=== PATIENT | female | born 1995 | race Caucasian/White ===

== ENCOUNTER 2018-07-30 09:25 | Emergency (ER) | payer MEDICAID ==
[~2018-07-30] VITALS: Ht 160 cm; Wt 65.5 kg
[2018-07-30 09:52] LABS: BASOPHILS % (AUTO) 0.6 % (0.0-2.0); EOSINOPHILS % (AUTO) 1.3 % (1.0-6.0); HEMATOCRIT 37.1 % (36-46); HEMOGLOBIN 12.8 g/dL (12.0-16.0); LYMPHOCYTES # (AUTO) 1.4 K/uL (1.0-4.8); LYMPHOCYTES % (AUTO) 18.1 % (22.0-44.0); MEAN CORPUSCULAR HEMOGLOBIN 31.6 pg (26.0-34.0); MEAN CORPUSCULAR HGB CONC 34.6 G/dL (31.0-37.0); MEAN CORPUSCULAR VOLUME 92 fL (80-100); MONOCYTES # (AUTO) 0.8 K/uL (0.1-1.0); MONOCYTES % (AUTO) 9.7 % (2.0-9.0); NEUTROPHILS # (AUTO) 5.6 K/uL (1.8-7.7); NEUTROPHILS % (AUTO) 70.3 % (40.0-70.0); PLATELET COUNT (AUTO) 336 K/uL (150-450); RED BLOOD CELL COUNT(AUTO) 4.06 MIL/uL (4.00-5.20); RED CELL DISTRIBUTION WIDTH 13.1 % (11.5-14.5)
[2018-07-30 09:55] LABS: APPEARANCE,URINE CLOUDY (CLEAR); BILIRUBIN,URINE NEGATIVE (NEGATIVE); GLUCOSE, URINE (UA) NEGATIVE (NEGATIVE); KETONES,URINE NEGATIVE (NEGATIVE); NITRATE,URINE NEGATIVE (NEGATIVE); OCCULT BLOOD,URINE LARGE (NEGATIVE); PROTEIN,URINE TRACE (NEGATIVE); UROBILINOGEN,URINE 0.2 mg/dL (<=1.0)
[2018-07-30 09:58] LABS: LEUKOCYTE ESTERASE ,URINE TRACE (NEGATIVE)
[2018-07-30 09:59] LABS: BACTERIA,URINE None Seen /HPF (None Seen); RBC,URINE >100 /HPF (0-2); SQUAMOUS EPITHELIAL CELL,UR Few /LPF (None Seen); WBC,URINE 0-2 /HPF (0-5)
[2018-07-30 10:00] LABS: ANION GAP 4 mmol/L (8-16); CALCIUM, TOTAL 8.9 mg/dL (8.8-10.5); CARBON DIOXIDE 31 mmol/L (22-29); CHLORIDE 102 mmol/L (98-107); CREATININE 0.79 mg/dL (0.60-1.30); GLOMERULAR FILTR. RATE CALC > 60 mL/min (>60); GLUCOSE,RANDOM 89 mg/dL (70-110); POTASSIUM 4.4 mmol/L (3.5-5.1); SODIUM SERUM 137 mmol/L (136-145); UREA NITROGEN, BLOOD 12 mg/dL (7-18)
[2018-07-30 10:11] LABS: ALANINE AMINOTRANSFERASE 39 U/L (12-78); ALBUMIN 3.8 g/dL (3.4-5.0); ALKALINE PHOSPHATASE 102 U/L (46-116); ASPARTATE AMINOTRANSFERASE 23 U/L (15-37); BILIRUBIN,TOTAL 0.3 mg/dL (0.1-1.0); HCG,QUANTITATIVE < 1 mIU/mL (0-6); LIPASE 197 U/L (73-393)
[2018-07-30] MEDS ORDERED: ONDANSETRON HCL 4 MG/2 ML VIAL IVP ONE (11:00)
[2018-07-30] MEDS ORDERED: MORPHINE SULFATE 4 MG/ML SYRINGE IVP ONE (11:00)
[2018-07-30] MEDS ORDERED: SODIUM CHLORIDE 0.9% 1,000 ML IV ONE (11:00)
[2018-07-30 13:05] VITALS: BP 120/69
== END 2018-07-30 14:01 | disposition home or self-care (01) ==
LOC: EMS 09:28
DX: K42.9 Umbilical hernia without obstruction or gangrene (principal)
CPT/HCPCS: 36415; 74176; 80053; 81001; 83690; 84702; 85025; 96374; 96375; 99285; J2270; J2405; J7030

== ENCOUNTER 2018-08-01 17:42 | Emergency (ER) | payer MEDICAID ==
[~2018-08-01] VITALS: Ht 160 cm; Wt 74.1 kg
[2018-08-01] MEDS ORDERED: ACET-784 PO (18:07)
[2018-08-01] MEDS ORDERED: IBUPROFEN 600 MG TABLET PO ONE (18:15)
[2018-08-01 20:46] LABS: APPEARANCE,URINE CLOUDY (CLEAR); BILIRUBIN,URINE NEGATIVE (NEGATIVE); GLUCOSE, URINE (UA) NEGATIVE (NEGATIVE); KETONES,URINE NEGATIVE (NEGATIVE); LEUKOCYTE ESTERASE ,URINE LARGE (NEGATIVE); NITRATE,URINE NEGATIVE (NEGATIVE); OCCULT BLOOD,URINE MODERATE (NEGATIVE); PROTEIN,URINE NEGATIVE (NEGATIVE); UROBILINOGEN,URINE 0.2 mg/dL (<=1.0)
[2018-08-01 21:01] LABS: RBC,URINE 0-2 /HPF (0-2); WBC,URINE >100 /HPF (0-5)
[2018-08-01 21:02] LABS: BACTERIA,URINE Moderate /HPF (None Seen); SQUAMOUS EPITHELIAL CELL,UR Few /LPF (None Seen)
[2018-08-01 21:10] LABS: INFLUENZA TYPE A NEGATIVE FOR TYPE A (NEGATIVE); INFLUENZA TYPE B NEGATIVE FOR TYPE B (NEGATIVE)
[2018-08-01] MEDS ORDERED: CIPROFLOXACIN HCL 250 MG TABLET PO ONE (22:00)
[2018-08-01 22:17] VITALS: BP 120/82
== END 2018-08-01 22:18 | disposition home or self-care (01) ==
LOC: EMS 17:43
DX: N12 Tubulo-interstitial nephritis, not specified as acute or chronic (principal); Z79.899 Other long term (current) drug therapy
CPT/HCPCS: 87086; 87804; 99284

== ENCOUNTER 2019-06-17 10:17 | Observation (INO) | payer MEDICAID ==
[~2019-06-17] VITALS: Ht 160 cm; Wt 72.7 kg
[~2019-06-17 10:17] MED LIST: ACET-784 PO
[2019-06-17 11:19] VITALS: BP 129/75
[2019-06-17] MEDS ORDERED: PREN-134 PO (14:05)
== END 2019-06-17 14:15 | disposition home or self-care (01) ==
LOC: EMS 10:19 → INTOOBSV 11:07 → 4S 11:07
PROVIDERS: ADMIT Obstetrics & Gynecology; ATTEND Obstetrics & Gynecology
DX: O26.892 Other specified pregnancy related conditions, second trimester (principal); R10.30 Lower abdominal pain, unspecified; Z3A.26 26 weeks gestation of pregnancy
CPT/HCPCS: 36415; 76811; 80307 ×8; 80349; 84702; G0378

== ENCOUNTER 2024-01-03 10:15 | Emergency (ER) | payer MEDICAID ==
[~2024-01-03] VITALS: Ht 160 cm; Wt 63.6 kg
[~2024-01-03 10:15] MED LIST changes: -ACET-784 PO; +PREN-134 PO
[2024-01-03] MEDS: IBUPROFEN 400 MG TABLET PO ONE (12:25)
[2024-01-03 12:29] LABS: COVID AG,FIA SOURCE NASAL SWAB
[2024-01-03 12:43] LABS: RAPID GROUP A STREP POSITIVE (NEGATIVE)
[2024-01-03 12:48] LABS: SARS-COV2 (COVID) ANTIGEN,FIA Negative (Negative)
[2024-01-03 12:50] LABS: INFLUENZA TYPE A NEGATIVE FOR TYPE A (NEGATIVE); INFLUENZA TYPE B NEGATIVE FOR TYPE B (NEGATIVE)
[2024-01-03] MEDS: AMOXICILLIN TRIHYDRATE 250 MG CAPSULE PO ONE (13:31)
[2024-01-03] MEDS ORDERED: AMOX500C2 PO (14:04)
[2024-01-03] MEDS ORDERED: IBUP-45 PO (14:04)
[2024-01-03 14:13] VITALS: BP 123/75; PULSE 57; RESP 18; TEMP 97.6
== END 2024-01-03 14:15 | disposition home or self-care (01) ==
LOC: EMS 10:15
DX: J02.0 Streptococcal pharyngitis (principal); Z20.822 Contact with and (suspected) exposure to COVID-19; Z98.890 Other specified postprocedural states
CPT/HCPCS: 87430; 87804; 99283